=== PATIENT | male | born 1955 | race Two or more races ===

== ENCOUNTER 2017-11-27 13:39 | Emergency (ER) | payer SELFPAY ==
[~2017-11-27] VITALS: Ht 167.6 cm; Wt 72.6 kg
--- NOTE | 2017-11-27 14:00 | NUR ---
BBRA FROM AN URGENT CARE FOR HIGH BP, SBP-170. CP X1.5HR AGO. PER PT HE HAD THE SAME EPISODE LAST YEAR. DENIES TRAUMA. VSS. SEEN BY MD FOR EVAL. 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 SAFETY AND COMFORT MEASURES PROVIDED. WILL MONITOR.
--- NOTE | 2017-11-27 14:24 | NUR ---
CABLE PLACER AT FOR BLOOD DRAW.
[2017-11-27 14:31] LABS: BASOPHILS % (AUTO) 0.5 % (0.0-2.0); EOSINOPHILS # (AUTO) 0.1 /CMM (0.0-0.7); HEMATOCRIT 47 % (39-51); HEMOGLOBIN 16.2 g/dL (13.5-17.5); LYMPHOCYTES # (AUTO) 0.7 /CMM (0.8-4.8); LYMPHOCYTES % (AUTO) 10.4 % (20.0-44.0); MEAN CORPUSCULAR HEMOGLOBIN 31 PG (26.0-33.0); MEAN CORPUSCULAR HGB CONC 35 g/dl (31.0-36.0); MEAN CORPUSCULAR VOLUME 90 fL (80-96); MONOCYTES # (AUTO) 0.4 /CMM (0.1-1.30); MONOCYTES % (AUTO) 5.6 % (2.0-12.0); NEUTROPHILS # (AUTO) 5.8 /CMM (1.8-8.9); NEUTROPHILS % (AUTO) 82.5 % (43.0-81.0); PLATELET COUNT (AUTO) 219 /CMM (150-450); RDW COEFFICIENT OF VARIATION 12.4 (11.5-15.0); RED BLOOD CELL COUNT(AUTO) 5.18 MIL/uL (4.5-6.0)
--- NOTE | 2017-11-27 14:31 | NUR ---
SECOND EKG DONE AT BS.
[2017-11-27 14:41] LABS: CALCIUM, SERUM 8.8 mg/dL (8.5-10.1); CARBON DIOXIDE 26 mmol/L (21-32); CHLORIDE 102 mmol/L (98-107); CREATININE 0.8 mg/dL (0.6-1.3); GLUCOSE 122 mg/dL (74-106); POTASSIUM 3.6 mmol/L (3.5-5.1); SODIUM SERUM 137 mmol/L (136-145); UREA NITROGEN, BLOOD 13 mg/dL (7-18)
[2017-11-27 14:45] LABS: INR 0.95 (0.87-1.13)
[2017-11-27] MEDS ORDERED: ACETAMINOPHEN ES 500 MG TABLET ONE (14:48)
[2017-11-27 14:49] LABS: TROPONIN I < 0.017 ng/mL (0.00-0.056)
--- NOTE | 2017-11-27 14:50 | NUR ---
GLORIA AT BS.
[2017-11-27] MEDS ORDERED: ACETAMINOPHEN ES 500 MG TABLET PO ONE (15:00)
--- NOTE | 2017-11-27 16:31 | NUR ---
VOLUNTEER SERVICES MANAGER AT FOR BLOOD DRAW.
--- NOTE | 2017-11-27 17:30 | NUR ---
IV removed. Catheter intact and site benign. Pressure and 4x4 applied to site. No bleeding noted.
--- NOTE | 2017-11-27 17:34 | NUR ---
Patient discharged to home in stable condition. Written and verbal after care instructions given. Patient verbalizes understanding of instruction.
[2017-11-27 17:36] VITALS: BP 155/79
== END 2017-11-27 17:40 | disposition home or self-care (01) ==
LOC: ER 13:41
DX: I10 Essential (primary) hypertension (principal); R07.89 Other chest pain
CPT/HCPCS: 36415; 71045; 80048; 84484 ×2; 85025; 85730; 93005 ×3; 99285; A4606; Z7610